=== PATIENT | male | born 1940 | race African-American/Black ===

== ENCOUNTER → 2016-09-03 | Outpatient (CLI) | payer MEDICARE, OTHER ==
[2014-10-29 09:31] VITALS: BP 124/69
[~2016-09-03] MED LIST: ALLO100T PO; ATOR10TA60 PO; BUPIVACAINE 0.5% 50 ML VIAL. IJ ONE; IOHEXOL 300 MG/ML 50 ML VIAL. INT ART ONE; LIDOCAINE 1% Multi-Dose 20 ML VIAL. ID ONE; SITA50TA PO; methylPREDNISolone ACETATE 40 MG/ML VIAL. INT ART ONE
--- NOTE | 2016-09-03 13:07 | KCIC ---
PROCEDURE One view right hip. HISTORY Degenerative joint disease. Pain. TECHNIQUE One view of the right hip is submitted for review. COMPARISON None. FINDINGS There is narrowing of the joint space superiorly with subchondral cysts and sclerosis noted. Osteophytes are noted as well. IMPRESSION Moderate to severe osteoarthritis in the right hip. Electronically signed by: Edi Zamora MD (Sep 03, 2016 13:06:49)
--- NOTE | 2016-09-03 13:11 | KCIC ---
PROCEDURE Right hip steroid injection under fluoroscopic guidance. HISTORY Pain. TECHNIQUE The procedure, its risks and benefits, and potential complications were discussed with the patient. All questions were answered. Written consent to proceed was obtained. Timeout procedure was performed. Patient was prepped and draped in the usual manner. 1 percent lidocaine was administered locally. 22 gauge spinal needle was positioned into the right hip joint under intermittent fluoroscopic visualization. Positioning was confirmed with 1-2 milliliters of Omnipaque 300. Subsequently, a mixture of 4 milliliters of lidocaine, 4 milliliters of Marcaine, 4 milliliters of Omnipaque 300, and 80 milligrams of Depo-Medrol were injected into the joint space. Image documenting contrast position was stored. Patient tolerated the procedure well. Needle was withdrawn. Patient was discharged in stable condition. Fluoroscopy time is 52 seconds. Image count is 1. IMPRESSION Right hip steroid injection under fluoroscopic guidance. Electronically signed by: Edi Zamora MD (Sep 03, 2016 13:10:05)
--- NOTE | 2016-09-03 13:47 | KCIC ---
Standing view of the bilateral knees Indication: Reason For Study Reason: DJD RT HIP, KNEE PAIN / Spl. Instructions: / History: Findings: There is chondrocalcinosis noted bilaterally. The joint space heights are relatively well maintained. Alignment is within normal limits. Impression: There is bilateral chondrocalcinosis which can be seen with CPPD arthropathy. Electronically signed by: Kiko Umana (Sep 03, 2016 13:46:37)
== END | disposition home or self-care (01) ==
LOC: KCIC 10:50
PROVIDERS: ATTEND Physical Medicine & Rehabilitation
DX: M25.551 Pain in right hip (principal); M25.561 Pain in right knee; M16.11 Unilateral primary osteoarthritis, right hip; M25.562 Pain in left knee; E11.9 Type 2 diabetes mellitus without complications; M79.604 Pain in right leg
CPT/HCPCS: 20610; 73501; 73565; J1030; J3490; Q9967

== ENCOUNTER → 2016-11-13 | Outpatient (CLI) | payer MEDICARE, OTHER ==
[2014-10-29 09:31] VITALS: BP 124/69
[~2016-11-13] MED LIST changes: -BUPIVACAINE 0.5% 50 ML VIAL. IJ ONE; +BUPIVACAINE MPF 0.5% 10 ML VIAL for KCIC. IJ ONE
--- NOTE | 2016-11-13 13:45 | KCIC ---
PROCEDURE Right hip injection HISTORY Chronic right hip pain TECHNIQUE Patient was informed of the risks to include pain, infection, bleeding, allergic reaction, blood vessel or nerve injury. All questions were answered. Patient signed a written consent form for right hip injection for pain therapy. Patient was placed in a supine position on the fluoroscopy table. External skin site overlying the right hip was prepped and draped in the usual sterile fashion. Betadine was utilized for cleansing solution. 1 percent lidocaine was utilized for local anesthesia to the depth of the right femoral neck. 22 gauge spinal needle was advanced under fluoroscopic visualization to the margin of the right femoral neck. A solution containing 2 cc Depo-Medrol, 4 cc Omnipaque 300, 4 cc Marcaine, and 4 cc lidocaine were injected during fluoroscopic visualization. Needle was removed. Bandage was applied. There were no immediate complications. Fluoroscopy time: 1 minutes 9 seconds, 1 image FINDINGS There is severe osteoarthritic change of the right hip. IMPRESSION 1. Technically successful right hip injection for pain therapy without immediate complication. There is severe osteoarthritic change of the right hip. Electronically signed by: Robert Albert MD (Nov 13, 2016 13:43:33)
== END | disposition home or self-care (01) ==
LOC: KCIC 09:36
PROVIDERS: ATTEND Physical Medicine & Rehabilitation
DX: M25.551 Pain in right hip (principal); G89.29 Other chronic pain
CPT/HCPCS: 20610; 77002; J1030; Q9967

== ENCOUNTER → 2016-11-18 | Outpatient (CLI) | payer MEDICARE, OTHER ==
[2014-10-29 09:31] VITALS: BP 124/69
[~2016-11-18] MED LIST changes: -BUPIVACAINE MPF 0.5% 10 ML VIAL for KCIC. IJ ONE; -IOHEXOL 300 MG/ML 50 ML VIAL. INT ART ONE; -LIDOCAINE 1% Multi-Dose 20 ML VIAL. ID ONE; -methylPREDNISolone ACETATE 40 MG/ML VIAL. INT ART ONE
--- NOTE | 2016-11-18 13:30 | KCIC ---
PROCEDURE Renal ultrasound. HISTORY Incomplete bladder emptying. Nocturia. Prostate cancer. TECHNIQUE Renal ultrasound was performed. COMPARISON None. FINDINGS Right kidney measures at least 9.9 centimeters in length and the left 10.0 centimeters. There is no hydronephrosis or mass. Prevoid bladder volume is 98 milliliters, with no significant postvoid residual. Prostate has been removed. IMPRESSION Normal renal ultrasound. Electronically signed by: Edi Zamora MD (Nov 18, 2016 13:28:50)
== END | disposition home or self-care (01) ==
LOC: KCIC US 12:56
PROVIDERS: ATTEND Internal Medicine
DX: C61 Malignant neoplasm of prostate (principal); R35.1 Nocturia; R39.14 Feeling of incomplete bladder emptying
CPT/HCPCS: 76770

== ENCOUNTER → 2017-05-12 | Outpatient (CLI) | payer MEDICARE, OTHER ==
[2014-10-29 09:31] VITALS: BP 124/69
[2017-05-12] MEDS: BUPIVACAINE MPF 0.5% 10 ML VIAL for KCIC. IJ ONE (14:05)
[2017-05-12] MEDS: IOHEXOL 300 MG/ML 50 ML VIAL. INT ART ONE (14:05)
[2017-05-12] MEDS: methylPREDNISolone ACETATE 40 MG/ML VIAL. INT ART ONE (14:05)
[2017-05-12] MEDS: LIDOCAINE 1% Multi-Dose 20 ML VIAL. ID ONE (14:05)
--- NOTE | 2017-05-12 15:53 | KCIC ---
PROCEDURE Therapeutic right and left hip injection using fluoroscopic guidance. HISTORY Bilateral hip pain. Pain is chronic. TECHNIQUE The procedure was explained to the patient as were potential risks, including infection, bleeding or allergic reaction. All questions were answered. Informed written and verbal consent was obtained. The right hip was prepped and draped in the usual sterile manner. Following administration of local anesthetic, a 22-gauge spinal needle was advanced into the hip joint without difficulty, with care taken to avoid the vascular structures. Stylet was removed and following negative aspiration, a mixture of 4 cc Omnipaque-300, 2 cc (80 mg) Depo-Medrol, 4 cc 0.5% Marcaine and 4 cc 1% lidocaine were injected without difficulty. Fluoroscopy demonstrates uniform and satisfactory distribution of the injection through the hip. The needle was removed. There was good hemostasis at the injection site. The left hip was prepped and draped in the usual sterile manner. Following administration of local anesthetic, a 22-gauge spinal needle was advanced into the hip joint without difficulty, with care taken to avoid the vascular structures. Stylet was removed and following negative aspiration, a mixture of 4 cc Omnipaque-300, 2 cc (80 mg) Depo-Medrol, 4 cc 0.5% Marcaine and 4 cc 1% lidocaine were injected without difficulty. Fluoroscopy demonstrates uniform and satisfactory distribution of the injection through the hip. The needle was removed. There was good hemostasis at the injection site. The patient left in stable condition without immediate complication. The patient was given postprocedural instructions, instructed to contact us or the emergency room if there are any complications. 2 spot images were obtained. FLUOROSCOPY TIME: 2 minutes and 3 seconds Electronically signed by: Ethan Salas MD (05/12/2017 3:49 PM) [id number]
== END | disposition home or self-care (01) ==
LOC: KCIC 13:13
PROVIDERS: ATTEND Physical Medicine & Rehabilitation
DX: M25.551 Pain in right hip (principal); M25.552 Pain in left hip; G89.29 Other chronic pain
CPT/HCPCS: 20610; 77002; J1030; Q9967